=== PATIENT | male | born 1985 | race Caucasian/White ===

== ENCOUNTER → 2022-10-21 | Outpatient (CLI) | payer OTHER | LOC: M PLARAD 14:34 | PROVIDERS: ATTEND Technician, Other | DX: M25.572 Pain in left ankle and joints of left foot (principal); M79.672 Pain in left foot; S96.812A Strain of other specified muscles and tendons at ankle and foot level, left foot, initial encounter; X58.XXXA Exposure to other specified factors, initial encounter; Y92.9 Unspecified place or not applicable; Y93.9 Activity, unspecified; Y99.9 Unspecified external cause status; S93.492A Sprain of other ligament of left ankle, initial encounter ==